=== PATIENT | female | born 1955 | race Caucasian/White ===

== ENCOUNTER 2016-06-26 10:39 | Emergency (ER) | payer MEDICAID, OTHER ==
[~2016-06-26] VITALS: Ht 165.1 cm; Wt 85.0 kg
[2016-06-26] MEDS ORDERED: HYDROCODONE/ACETAMINOPHEN 5/325MG TABLET PO ONE (11:30)
[2016-06-26] MEDS ORDERED: ONDANSETRON 4MG ODT PO ONE (11:30)
[2016-06-26 12:56] VITALS: BP 127/90
== END 2016-06-26 13:04 | disposition home or self-care (01) ==
LOC: ER 10:46
DX: S00.03XA Contusion of scalp, initial encounter (principal); W10.9XXA Fall (on) (from) unspecified stairs and steps, initial encounter; Y93.89 Activity, other specified; Y92.89 Other specified places as the place of occurrence of the external cause; Y99.8 Other external cause status
CPT/HCPCS: 70450; 81025; 99284; Q0162; Z7610